=== PATIENT | male | born 1975 | race Caucasian/White ===

== ENCOUNTER 2019-11-08 03:21 | Emergency (ER) | payer OTHER ==
[2019-11-08 03:30] VITALS: BP 118/86; RESP 20; TEMP 97.4
[2019-11-08] MEDS ORDERED: IPRATROPIUM-ALBUTEROL 3 ML NEB INHALATION STA (03:44)
[2019-11-08] MEDS ORDERED: ALBUTEROL NEBULIZED 2.5 MG/3 ML INHALATION STA (03:44)
[2019-11-08] MEDS ORDERED: predniSONE 20 MG TAB PO STA (03:45)
--- NOTE | 2019-11-08 03:57 | ED ---
General Adult HPI - General Chief complaint: Upper Respiratory Infection Stated complaint: Sore Throat Time Seen by Provider: 11/08/19 03:37 Source: patient Mode of arrival: ambulatory Limitations: no limitations - History of Present Illness Initial comments: this patient is a 38-year-old man presents to be evaluated for cough and shortness of breath. The patient states that he has underlying history of COPD. He states that for the past few weeks his breathing has been getting worse. He does not have a doctor he would have been seen earlier. He states he has been noticing wheezing and shortness of breath. He has a cough that occasionally produces some yellowish sputum. There is no chest pain. No change in urination or bowel movements. No leg pain or swelling. -: days(s) Severity scale (1-10): 0 Consistency: constant Improves with: none Worsens with: none Associated Symptoms: cough, shortness of breath Treatments Prior to Arrival: none - Related Data Previous Rx's Medication Instructions Recorded Albuterol Inhaler [Ventolin Hfa 1 - 2 puff INHALATION Q6HR PRN #1 11/08/19 Inhaler] inhaler predniSONE 60 mg PO DAILY #30 tab 11/08/19 Allergies Allergy/AdvReac Type Severity Reaction Status Date / Time No Known Allergies Allergy Verified 11/08/19 03:29 Review of Systems ROS Statement: Those systems with pertinent positive or pertinent negative responses have been documented in the HPI. ROS Other: All systems not noted in ROS Statement are negative. Constitutional: Denies: fever, chills Respiratory: Reports: cough, dyspnea, wheezes. Denies: hemoptysis Cardiovascular: Denies: chest pain, palpitations, edema, syncope Gastrointestinal: Denies: abdominal pain, nausea, vomiting Genitourinary: Denies: dysuria, hematuria Musculoskeletal: Denies: back pain Skin: Denies: rash Neurological: Denies: headache, weakness, numbness Past Medical History Past Medical History: No Reported History History of Any Multi-Drug Resistant Organisms: None Reported Past Surgical History: No Surgical Hx Reported Past Psychological History: Anxiety, Bipolar, Depression, Schizophrenia Smoking Status: Current every day smoker Past Alcohol Use History: Daily Past Drug Use History: Marijuana General Exam Limitations: no limitations General appearance: alert, in no apparent distress Head exam: Present: atraumatic, normocephalic Eye exam: Present: normal appearance. Absent: scleral icterus, conjunctival injection Respiratory exam: Present: wheezes, decreased breath sounds. Absent: respiratory distress, rales, rhonchi, stridor, chest wall tenderness, accessory muscle use, prolonged expiratory Cardiovascular Exam: Present: regular rate, normal rhythm, normal heart sounds. Absent: systolic murmur, diastolic murmur, rubs, gallop GI/Abdominal exam: Present: soft. Absent: distended, tenderness, guarding, rebound Extremities exam: Present: normal inspection, normal capillary refill. Absent: pedal edema, calf tenderness Back exam: Present: normal inspection. Absent: CVA tenderness (R), CVA tenderness (L) Neurological exam: Present: alert Skin exam: Present: warm, dry, intact, normal color. Absent: rash Course Vital Signs 11/08/19 11/08/19 11/08/19 03:24 03:59 04:16 Temperature 97.4 F L Pulse Rate 94 76 76 Respiratory 20 Rate Blood Pressure 118/86 O2 Sat by Pulse 96 Oximetry Medical Decision Making - Lab Data Lab Results 11/08/19 Range/Units 03:50 Influenza Type A RNA Not Detected (Not Detectd) Influenza Type B (PCR) Not Detected (Not Detectd) Disposition Clinical Impression: COPD exacerbation Disposition: HOME SELF-CARE Condition: Good Instructions (If sedation given, give patient instructions): COPD (Chronic Obstructive Pulmonary Disease) (DC) Prescriptions: predniSONE 60 mg PO DAILY #30 tab Albuterol Inhaler [Ventolin Hfa Inhaler] 1 - 2 puff INHALATION Q6HR PRN #1 inhaler PRN Reason: Wheezing Is patient prescribed a controlled substance at d/c from ED?: No Referrals: Gio Mike MD [Primary Care Provider] - 1-2 days
[2019-11-08 04:03] VITALS: PULSE 76
--- NOTE | 2019-11-08 04:04 | XR ---
EXAMINATION TYPE: XR chest 2V DATE OF EXAM: 11/08/2019 COMPARISON: 06/16/2010 HISTORY: Cough TECHNIQUE: 2 views FINDINGS: Heart and mediastinum are normal. Lungs are clear. Diaphragm is normal. Bony thorax appears normal. There are small calcified granuloma right lower lobe. IMPRESSION: Normal heart. No active cardiopulmonary disease. No change.
== END 2019-11-08 05:42 | disposition home or self-care (01) ==
LOC: EC 03:21
DX: J44.1 Chronic obstructive pulmonary disease with (acute) exacerbation (principal); F17.200 Nicotine dependence, unspecified, uncomplicated
CPT/HCPCS: 94640; 87502; 71046; 99285; J7512

== ENCOUNTER 2019-11-22 03:48 | Observation (INO) | payer OTHER ==
[2019-11-22] MEDS ORDERED: IPRATROPIUM-ALBUTEROL 3 ML NEB INHALATION STA (04:24)
[2019-11-22] MEDS ORDERED: methylPREDNISolone SOD SUCCI 125 MG/2 ML VIAL IV STA (04:24)
--- NOTE | 2019-11-22 04:31 | ED ---
SOB HPI - General Chief Complaint: Shortness of Breath Stated Complaint: Diff Breathing Time Seen by Provider: 11/22/19 04:01 Source: patient Mode of arrival: ambulatory Limitations: no limitations - History of Present Illness Initial Comments: Sheng is a pleasant 44-year-old gentleman who presents ER today reporting that he feels like he can't catch his breath. Patient states he does smoke cigarettes every day he has had to come to the hospital in the past for breathing treatments but he doesn't use breathing treatments or inhalers regularly he's not certain if he has COPD. Patient denies any associated chest pain palpitations lightheadedness diaphoresis fevers chills nausea vomiting or body aches. - Related Data Previous Rx's Medication Instructions Recorded Albuterol Inhaler [Ventolin Hfa 1 - 2 puff INHALATION Q6HR PRN #1 11/08/19 Inhaler] inhaler predniSONE 60 mg PO DAILY #30 tab 11/08/19 Albuterol Inhaler [Ventolin Hfa 1 - 2 puff INHALATION RT-Q6H PRN 11/22/19 Inhaler] #1 inhaler predniSONE [Deltasone] 40 mg PO DAILY 5 Days #10 tablet 11/22/19 Allergies Allergy/AdvReac Type Severity Reaction Status Date / Time No Known Allergies Allergy Verified 11/22/19 03:55 Review of Systems ROS Statement: Those systems with pertinent positive or pertinent negative responses have been documented in the HPI. ROS Other: All systems not noted in ROS Statement are negative. Past Medical History Past Medical History: No Reported History History of Any Multi-Drug Resistant Organisms: None Reported Past Surgical History: No Surgical Hx Reported Past Psychological History: Anxiety, Bipolar, Depression, Schizophrenia Smoking Status: Current every day smoker Past Alcohol Use History: Daily Past Drug Use History: Cocaine, Marijuana, Methamphetamine General Exam - General Exam Comments Initial Comments: Physical Exam GENERAL: Patient is well-developed and well-nourished. Patient is nontoxic and well- hydrated and is in no distress. HENT: Normocephalic, Atraumatic. EYES: PERRL, EOMI PULMONARY: Expiratory wheezing in all lung mejía CARDIOVASCULAR: There is a regular rate and rhythm without any murmurs gallops or rubs. ABDOMEN: Soft and nontender with normal bowel sounds. SKIN: Skin is clear with no lesions or rashes and otherwise unremarkable. : Deferred NEUROLOGIC: Patient is alert and oriented x3. Moving all extremities spontaneously MUSCULOSKELETAL: Normal extremities with adequate strength and full range of motion. No lower extremity swelling or edema. No calf tenderness. PSYCHIATRIC: Normal psychiatric evaluation. Limitations: no limitations Course Vital Signs 11/22/19 11/22/19 11/22/19 03:51 05:07 05:14 Temperature 97.6 F Pulse Rate 98 86 88 Respiratory 20 Rate Blood Pressure 109/75 O2 Sat by Pulse 93 L Oximetry 11/22/19 05:56 Temperature Pulse Rate 71 Respiratory 18 Rate Blood Pressure 128/87 O2 Sat by Pulse 95 Oximetry Medical Decision Making - Medical Decision Making Patient was seen and evaluated upon arrival in the emergency department is 44-year-old male who seems to have some cognitive delay, he is a very poor historian. He does admit to smoking cigarettes daily he states that he's used inhalers in the past but doesn't think he has COPD or emphysema doesn't have a nebulizer at home. On initial evaluation patient has wheezing in all lung mejía and is hypoxic to the low 90s. DuoNeb's and steroids were ordered. Upon reevaluation patient had persistent wheezing and an oxygen saturation of only 90% while at rest and on 2 L of oxygen. Decision was made to admit the patient for continuous breathing treatments and steroids. Patient care was discussed with his primary care physician Dr. Jordan who agreed with plan for admission. - Lab Data Result diagrams: 11/22/19 04:31 11/22/19 04:31 Lab Results 11/22/19 11/22/19 Range/Units 04:31 04:31 WBC 7.4 (3.8-10.6) k/uL RBC 4.83 (4.30-5.90) m/uL Hgb 14.8 (13.0-17.5) gm/dL Hct 44.8 (39.0-53.0) % MCV 92.8 (80.0-100.0) fL MCH 30.6 (25.0-35.0) pg MCHC 33.0 (31.0-37.0) g/dL RDW 15.2 (11.5-15.5) % Plt Count 341 (150-450) k/uL Neutrophils % 47 % Lymphocytes % 40 % Monocytes % 6 % Eosinophils % 4 % Basophils % 1 % Neutrophils # 3.5 (1.3-7.7) k/uL Lymphocytes # 2.9 (1.0-4.8) k/uL Monocytes # 0.4 (0-1.0) k/uL Eosinophils # 0.3 (0-0.7) k/uL Basophils # 0.0 (0-0.2) k/uL Sodium 145 (137-145) mmol/L Potassium 4.1 (3.5-5.1) mmol/L Chloride 109 H (98-107) mmol/L Carbon Dioxide 26 (22-30) mmol/L Anion Gap 10 mmol/L BUN 8 L (9-20) mg/dL Creatinine 0.67 (0.66-1.25) mg/dL Est GFR (CKD-EPI)AfAm >90 (>60 ml/min/1.73 sqM) Est GFR (CKD-EPI)NonAf >90 (>60 ml/min/1.73 sqM) Glucose 119 H (74-99) mg/dL Calcium 8.3 L (8.4-10.2) mg/dL Total Bilirubin 0.4 (0.2-1.3) mg/dL AST 46 (17-59) U/L ALT 50 H (4-49) U/L Alkaline Phosphatase 74 (38-126) U/L Total Protein 6.5 (6.3-8.2) g/dL Albumin 3.8 (3.5-5.0) g/dL Disposition Clinical Impression: COPD exacerbation, Tobacco abuse Disposition: ADMITTED IP TO THIS HOSP Condition: Serious
[2019-11-22 04:47] LABS: Basophils % (A) 1 %; Eosinophils # (A) 0.3 k/uL (0-0.7); Eosinophils % (A) 4 %; HCT 44.8 % (39.0-53.0); HGB 14.8 gm/dL (13.0-17.5); Lymphocytes # (A) 2.9 k/uL (1.0-4.8); Lymphocytes % (A) 40 %; MCH 30.6 pg (25.0-35.0); MCV 92.8 fL (80.0-100.0); Mean Platelet Volume 7.2; Monocytes # (A) 0.4 k/uL (0-1.0); Monocytes % (A) 6 %; Neutrophils # (A) 3.5 k/uL (1.3-7.7); Neutrophils % (A) 47 %; Platelet Count 341 k/uL (150-450); RBC 4.83 m/uL (4.30-5.90); RDW 15.2 % (11.5-15.5); WBC 7.4 k/uL (3.8-10.6)
[2019-11-22 04:58] LABS: ALT 50 U/L (4-49); AST 46 U/L (17-59); African American GFR (CKD) >90 (>60 ml/min/1.73 sqM); Albumin 3.8 g/dL (3.5-5.0); Alkaline Phosphatase 74 U/L (38-126); Anion Gap 10 mmol/L; Blood Urea Nitrogen 8 mg/dL (9-20); Calcium 8.3 mg/dL (8.4-10.2); Carbon Dioxide 26 mmol/L (22-30); Chloride 109 mmol/L (98-107); Glucose 119 mg/dL (74-99); Non-African American GFR(CKD) >90 (>60 ml/min/1.73 sqM); Potassium 4.1 mmol/L (3.5-5.1); Sodium 145 mmol/L (137-145); Total Bilirubin 0.4 mg/dL (0.2-1.3); Total Protein 6.5 g/dL (6.3-8.2)
--- NOTE | 2019-11-22 05:12 | XR ---
EXAMINATION TYPE: XR chest 2V DATE OF EXAM: 11/22/2019 COMPARISON: 11/08/2019 HISTORY: Cough TECHNIQUE: 2 views FINDINGS: Heart and mediastinum are normal. Lungs are clear. Diaphragm is normal. There is small calc ified granuloma right lower lobe. There are chest leads. IMPRESSION: No cardiopulmonary disease. No change.
[2019-11-22] MEDS ORDERED: NICOTINE POLACRILEX 2 MG GUM BUCCAL PRN (05:37)
[2019-11-22] MEDS: IPRATROPIUM-ALBUTEROL 3 ML NEB INHALATION PRN ×4 (08:02→20:49)
[2019-11-22] MEDS ORDERED: INFLUENZA VACCINE (6 MOS+) 60 MCG/0.5 ML SYRINGE IM ONE (10:12)
[2019-11-22] MEDS: predniSONE 20 MG TAB PO SCH (10:39)
[2019-11-22] MEDS: NICOTINE 14MG/24HR PATCH TRANSDERM SCH (10:39)
[2019-11-22] MEDS: IBUPROFEN 800 MG TAB PO PRN ×2 (12:11→17:19)
[2019-11-22] MEDS: guaiFENesin-Coden 100-10MG/5ML 10 ML CUP PO PRN (17:19)
--- NOTE | 2019-11-22 21:11 | HP ---
HISTORY AND PHYSICAL CHIEF COMPLAINT: Difficulty breathing. HISTORY OF PRESENT ILLNESS: This is another admission for this 44-year-old white male. He has not been seen in the office since 2011. He does not take any medications. He does smoke. He came to the emergency room where he was very dyspneic, wheezy and was admitted as exacerbation of COPD. REVIEW OF SYSTEMS: He has had no headaches, neurologic, problems, difficulty with vision or hearing, hemoptysis, chest pain, heart disease, hypertension, orthopnea, PND, abdominal pain, nausea, vomiting, hematemesis, melena, hematochezia, jaundice, hepatitis, cirrhosis, hematuria, frequency, urgency, nocturia, renal failure, diabetes, etc. Past medical history, family history and personal and social histories were otherwise unremarkable other than his smoking history. He apparently drinks moderately. PHYSICAL EXAMINATION: Blood pressure 120/86 with a pulse of 90, respirations of 38 and he is afebrile. In general, he appeared to be somewhat disheveled, in no acute distress. Skin color is normal. Skin is warm, dry. Lymph nodes are not enlarged. Head, ears, eyes, nose, mouth, and throat were normal and neck veins not distended. Chest demonstrated poor breath sounds throughout with an increased AP diameter and expiratory wheezing and scattered rales and rhonchi. Cardiac exam is normal. Abdomen is soft, nontender. Extremities: Normal. Neurologically he is intact. IMPRESSION: Exacerbation of chronic obstructive pulmonary disease. PLAN: 1. Bed rest. 2. IV fluids. 3. IV and inhaled steroids. 4. Updrafts. MMODL / IJN: [id number] /
[2019-11-23] MEDS: NICOTINE 14MG/24HR PATCH TRANSDERM SCH (08:50)
[2019-11-23] MEDS: predniSONE 20 MG TAB PO SCH (08:50)
[2019-11-23] MEDS: guaiFENesin-Coden 100-10MG/5ML 10 ML CUP PO PRN ×2 (09:30→19:40)
[2019-11-23] MEDS ORDERED: NICOTINE 14MG/24HR PATCH TRANSDERM STA (09:46)
[2019-11-23] MEDS: IPRATROPIUM-ALBUTEROL 3 ML NEB INHALATION PRN ×3 (11:59→19:52)
--- NOTE | 2019-11-23 13:47 | PN ---
PROGRESS NOTE CHIEF COMPLAINT: Status asthmaticus and COPD. HISTORY OF PRESENT ILLNESS: This gentleman is slightly improved. He is still very wheezy, congested and short of breath with regular activity in the room. PHYSICAL EXAMINATION: He still has rales, rhonchi and wheezing heard throughout the chest with slightly prolonged expiratory phase. Cardiac exam demonstrates tachycardia and the abdomen is soft, nontender. IMPRESSION: Exacerbation of chronic obstructive pulmonary disease. PLAN: Continue with current program for another day or two until he can be discharged. MMODL / IJN: [id number] /
[2019-11-23] MEDS: IBUPROFEN 800 MG TAB PO PRN (19:40)
[2019-11-24] MEDS: predniSONE 20 MG TAB PO SCH (08:25)
[2019-11-24] MEDS: NICOTINE 14MG/24HR PATCH TRANSDERM SCH (08:25)
[2019-11-24] MEDS: guaiFENesin-Coden 100-10MG/5ML 10 ML CUP PO PRN ×2 (08:25→21:31)
[2019-11-24] MEDS: IBUPROFEN 800 MG TAB PO PRN ×2 (08:25→21:31)
[2019-11-24] MEDS: IPRATROPIUM-ALBUTEROL 3 ML NEB INHALATION PRN ×4 (09:18→21:16)
--- NOTE | 2019-11-24 22:57 | PN ---
PROGRESS NOTE CHIEF COMPLAINT: Exacerbation of COPD. HISTORY OF PRESENT ILLNESS: This gentleman is doing a little bit better. Each day is a little more open. PHYSICAL EXAMINATION: He still has bilateral wheezing and decreased breath sounds. Cardiac exam is normal. Abdomen is soft, nontender. IMPRESSION: Exacerbation of chronic obstructive pulmonary disease. PLAN: Continue with current treatment and he will probably be able to go home tomorrow. MMODL / IJN: [id number] /
[2019-11-25 06:16] VITALS: BP 112/77; RESP 17; TEMP 97.6
[2019-11-25] MEDS: NICOTINE 14MG/24HR PATCH TRANSDERM SCH (07:49)
[2019-11-25] MEDS: IBUPROFEN 800 MG TAB PO PRN (07:49)
[2019-11-25] MEDS: predniSONE 20 MG TAB PO SCH (07:50)
[2019-11-25] MEDS: guaiFENesin-Coden 100-10MG/5ML 10 ML CUP PO PRN (07:50)
[2019-11-25] MEDS: IPRATROPIUM-ALBUTEROL 3 ML NEB INHALATION PRN ×2 (08:20→11:48)
[2019-11-25 08:31] VITALS: PULSE 92
--- NOTE | 2019-11-26 08:05 | DS ---
DISCHARGE SUMMARY CHIEF COMPLAINT: Difficulty breathing. HISTORY OF PRESENT ILLNESS AND PHYSICAL EXAMINATION: Details of this man's history and physical can be found in the initial workup. LABORATORY STUDIES: While he was in the hospital he had laboratory studies, details of which can be found in the laboratory section of his chart. COURSE IN THE HOSPITAL: After admission, he was placed on bedrest, started on intravenous fluids, IV and inhaled steroids and updrafts. He responded well over the next several days. He was doing well enough it was felt that he could go home on the and he will go home on his usual activity, diet and was admonished to stop smoking. He will go home with a Medrol Dosepak and we will set him up for updraft device at home. He will be seen in the office in a day or so. FINAL DIAGNOSIS: Exacerbation of chronic obstructive pulmonary disease. OPERATIONS: None. CONSULTATION: None. He is improved. MMVEDAL / IJN: [id number] /
[2019-11-26] MEDS ORDERED: methylPREDNISolone 4 MG TAB TAPER PO SCH (09:00)
== END 2019-11-25 13:30 | disposition home or self-care (01) ==
LOC: EC 03:48 → 6NMEDSUR 06:27
PROVIDERS: ADMIT Family Medicine; ATTEND Family Medicine
DX: J44.1 Chronic obstructive pulmonary disease with (acute) exacerbation (principal); F17.210 Nicotine dependence, cigarettes, uncomplicated; J84.10 Pulmonary fibrosis, unspecified; F41.9 Anxiety disorder, unspecified; F31.9 Bipolar disorder, unspecified; F20.9 Schizophrenia, unspecified; Z23 Encounter for immunization; Z79.899 Other long term (current) drug therapy
CPT/HCPCS: 90471; 36415; 94640 ×8; 94760; 93005; 80053; 85025; 71046; 90686; G0378 ×4; G0008; S4990 ×4; J2930; J7512 ×4

== ENCOUNTER 2019-11-26 17:26 | Emergency (ER) | payer OTHER ==
--- NOTE | 2019-11-26 17:58 | ED ---
Head Injury HPI - General Chief complaint: Head Injury Stated complaint: Fall Time Seen by Provider: 11/26/19 17:46 Source: patient, RN notes reviewed, old records reviewed Mode of arrival: ambulatory Limitations: no limitations - History of Present Illness Initial comments: This is a 44-year-old male here for status post slip and fall. Patient does ad loli alcohol intoxication. Patient did hit his head no loss consciousness. He was witnessed by bystanders who called EMS and brought valuation no obvious injury. No bleeding. Patient denying any significant pain he does complain of mild headache but no other pain on his body. No neck pain MD Complaint: head injury, fall -: hour(s) Mechanism of Injury: mechanical fall Loss of Consciousness: no Previous Trauma to this Area: No Place: home Radiation: none Severity: mild Consistency: constant Provoking factors: none known Other Injuries: none Associated Symptoms: denies other symptoms - Related Data Previous Rx's Medication Instructions Recorded Albuterol Inhaler [Ventolin Hfa 1 - 2 puff INHALATION RT-Q6H PRN 11/22/19 Inhaler] #1 inhaler predniSONE [Deltasone] 40 mg PO DAILY 5 Days #10 tablet 11/22/19 Ipratropium-Albuterol Nebulize 3 ml INHALATION RT-Q4H PRN #120 11/25/19 [Duoneb 0.5 mg-3 mg/3 ml Soln] ampul.neb methylPREDNISolone Dose Pack 24 mg PO DAILY 7 Days #1 dosepack 11/25/19 [Medrol Dose Pack] Allergies/Adverse reactions: Allergies Allergy/AdvReac Type Severity Reaction Status Date / Time No Known Allergies Allergy Verified 11/26/19 17:32 Review of Systems ROS Statement: Those systems with pertinent positive or pertinent negative responses have been documented in the HPI. ROS Other: All systems not noted in ROS Statement are negative. Past Medical History Past Medical History: Asthma, COPD, GERD/Reflux, Osteoarthritis (OA) Additional Past Medical History / Comment(s): Bronchitis, gastric ulcer, lower GI bleed, concussion years ago, chronic low back pain, arthritis bilateral hands/shoulders History of Any Multi-Drug Resistant Organisms: None Reported Past Surgical History: No Surgical Hx Reported Past Anesthesia/Blood Transfusion Reactions: Unable to Obtain Additional Past Anesthesia/Blood Transfusion Reaction / Comment(s): Pt has never had anesthesia. Past Psychological History: Anxiety, Bipolar, Depression, Schizophrenia Smoking Status: Current every day smoker Past Alcohol Use History: Daily Past Drug Use History: Marijuana - Past Family History Father Family Medical History: Myocardial Infarction ([place]) Additional Family Medical History / Comment(s): Father of a massive [place] at the age of 61 yrs. Mother Family Medical History: Diabetes Mellitus, Hypertension Additional Family Medical History / Comment(s): Mother is 76yrs old. General Exam Limitations: no limitations General appearance: alert, in no apparent distress Head exam: Present: atraumatic, normocephalic, normal inspection Eye exam: Present: normal appearance, PERRL, EOMI. Absent: scleral icterus, c onjunctival injection, periorbital swelling ENT exam: Present: normal exam, mucous membranes moist Neck exam: Present: normal inspection. Absent: tenderness, meningismus, lymphadenopathy Respiratory exam: Present: normal lung sounds bilaterally. Absent: respiratory distress, wheezes, rales, rhonchi, stridor Cardiovascular Exam: Present: regular rate, normal rhythm, normal heart sounds. Absent: systolic murmur, diastolic murmur, rubs, gallop, clicks GI/Abdominal exam: Present: soft, normal bowel sounds. Absent: distended, tenderness, guarding, rebound, rigid Extremities exam: Present: normal inspection, full ROM, normal capillary refill. Absent: tenderness, pedal edema, joint swelling, calf tenderness Back exam: Present: normal inspection Neurological exam: Present: alert, oriented X3, CN II-XII intact Psychiatric exam: Present: normal affect, normal mood Skin exam: Present: warm, dry, intact, normal color. Absent: rash Course Vital Signs 11/26/19 17:28 Temperature 98.8 F Pulse Rate 104 H Respiratory 20 Rate Blood Pressure 117/76 O2 Sat by Pulse 93 L Oximetry - Reevaluation(s) Reevaluation #1: 11/26/19 19:26 Medical records reviewed Reevaluation #2: 11/26/19 19:26 Patient does have evaluation here in the ER remains significantly neurologically intact able ambulate Reevaluation #3: 11/26/19 19:26 Reasons mentating appropriately. Knows where he is. Control of making informed decisions like discharge home attempts were made to give patient safe ride Medical Decision Making - Medical Decision Making 44 male status post fall without injury. CT brain C-spine negative patient can be discharged home Disposition Clinical Impression: Closed head injury, Fall Disposition: HOME SELF-CARE Condition: Good Instructions (If sedation given, give patient instructions): Concussion (ED), Fall Prevention for Older Adults (ED) Is patient prescribed a controlled substance at d/c from ED?: No Referrals: Oseas Jordan MD [Primary Care Provider] - 1-2 days
--- NOTE | 2019-11-26 18:47 | CT ---
EXAMINATION TYPE: CT brain jennifer wo con DATE OF EXAM: 11/26/2019 COMPARISON: 12/24/2013 HISTORY: Fall with posterior head injury. CT DLP: 1522.7 mGycm, Automated exposure control for dose reduction was used. CONTRAST: Patient injected with 0 mL of Isovue 300. CT of the brain is performed utilizing 3 mm thick sections through the posterior fossa and 3 mm thick sections through the remaining calvarium. Study is performed within 24 hours of arrival to the hospital. No abnormal hyperdensity is present to suggest an acute intracranial hemorrhage. No mass lesion is evident. No acute infarcts are evident. Ventricles and sulci are appropriate for the patient age. Paranasal sinuses and mastoid air cells within the [id number] are clear. IMPRESSIONS: 1. Normal CT brain. CT cervical spine. COMPARISON: None CT of the cervical spine is performed in the axial plane at 2 mm thick sections. Reconstructed image s in the coronal, and sagittal plane are reviewed on the computer. No acute fractures are evident. Vertebral body alignment is normal. Disc heights are preserved. Vertebral body heights are preserved. No spinal canal stenosis is evident. No neural foraminal stenosis is evident. IMPRESSIONS: 1. No acute osseous abnormality cervical spine
[2019-11-26] MEDS ORDERED: ACETAMINOPHEN TAB 325 MG TAB PO STA (19:18)
[2019-11-26] MEDS ORDERED: IBUPROFEN 600 MG TAB PO STA (19:18)
[2019-11-27] MEDS ORDERED: LORazepam 1 MG TAB PO STA (00:17)
[2019-11-27 01:17] VITALS: PULSE 87
[2019-11-27 05:15] VITALS: BP 144/74; RESP 18; TEMP 98
== END 2019-11-27 05:14 | disposition home or self-care (01) ==
LOC: EC 17:26
DX: S09.90XA Unspecified injury of head, initial encounter (principal); F17.200 Nicotine dependence, unspecified, uncomplicated; W01.0XXA Fall on same level from slipping, tripping and stumbling without subsequent striking against object, initial encounter
CPT/HCPCS: 70450; 72125; 99284

== ENCOUNTER 2019-11-29 21:42 | Emergency (ER) | payer OTHER ==
--- NOTE | 2019-11-29 22:26 | ED ---
Psych HPI - General Chief Complaint: Psychiatric Symptoms Stated Complaint: EPS Source: patient Mode of arrival: ambulatory - History of Present Illness Initial Comments: Patient's 44-year-old man who presents to be valid for depression and feeling like he would be better off . The patient denies having suicidal plan. States he does not have psychiatrist and is not currently taking any psychiatric medicines. MD Complaint: suicidal ideation, feels depressed Onset/Timin -: week(s) Associated Psychiatric Symptoms: depression History of same: Yes Quality: getting worse Improves With: none Worsens With: none - Related Data Previous Rx's Medication Instructions Recorded predniSONE [Deltasone] 40 mg PO DAILY 5 Days #10 tablet 11/22/19 Ipratropium-Albuterol Nebulize 3 ml INHALATION RT-Q4H PRN #120 11/25/19 [Duoneb 0.5 mg-3 mg/3 ml Soln] ampul.neb Allergies Allergy/AdvReac Type Severity Reaction Status Date / Time No Known Allergies Allergy Verified 11/29/19 22:24 Review of Systems ROS Statement: Those systems with pertinent positive or pertinent negative responses have been documented in the HPI. ROS Other: All systems not noted in ROS Statement are negative. Constitutional: Denies: fever, chills Respiratory: Denies: cough, dyspnea Cardiovascular: Denies: chest pain, palpitations, syncope Gastrointestinal: Denies: abdominal pain, vomiting, diarrhea Genitourinary: Denies: dysuria, hematuria Musculoskeletal: Denies: back pain Skin: Denies: rash Neurological: Denies: headache Psychiatric: Reports: depression, suicidal thoughts. Denies: anxiety, auditory hallucinations, visual hallucinations, homicidal thoughts Past Medical History Past Medical History: Asthma, COPD, GERD/Reflux, Osteoarthritis (OA) Additional Past Medical History / Comment(s): Bronchitis, gastric ulcer, lower GI bleed, concussion years ago, chronic low back pain, arthritis bilateral hands/shoulders History of Any Multi-Drug Resistant Organisms: None Reported Past Surgical History: No Surgical Hx Reported Past Anesthesia/Blood Transfusion Reactions: Unable to Obtain Additional Past Anesthesia/Blood Transfusion Reaction / Comment(s): Pt has never had anesthesia. Past Psychological History: Anxiety, Bipolar, Depression, Schizophrenia Smoking Status: Current every day smoker Past Alcohol Use History: Daily Past Drug Use History: Marijuana - Past Family History Father Family Medical History: Myocardial Infarction (PR) Additional Family Medical History / Comment(s): Father of a massive PR at the age of 61 yrs. Mother Family Medical History: Diabetes Mellitus, Hypertension Additional Family Medical History / Comment(s): Mother is 76yrs old. General Exam Limitations: no limitations General appearance: alert, in no apparent distress Head exam: Present: atraumatic, normocephalic ENT exam: Present: normal oropharynx Respiratory exam: Present: wheezes (Trace expiratory wheeze). Absent: respiratory distress, rales, rhonchi, stridor, accessory muscle use, decreased breath sounds Cardiovascular Exam: Present: regular rate, normal rhythm, normal heart sounds. Absent: systolic murmur, diastolic murmur, rubs, gallop GI/Abdominal exam: Present: soft. Absent: tenderness, guarding Extremities exam: Present: normal inspection, normal capillary refill. Absent: pedal edema, calf tenderness Back exam: Present: normal inspection Neurological exam: Present: alert Psychiatric exam: Present: depressed. Absent: agitated, anxious, flat affect, manic, homicidal ideation, suicidal ideation Skin exam: Present: warm, dry, intact, normal color. Absent: rash Course Vital Signs 11/29/19 11/30/19 21:48 01:39 Temperature 99.0 F Pulse Rate 102 H 100 Respiratory 20 19 Rate Blood Pressure 146/91 127/81 O2 Sat by Pulse 94 L 95 Oximetry Medical Decision Making - Lab Data Result diagrams: 11/30/19 01:47 11/30/19 01:47 Lab Results 11/30/19 11/30/19 11/30/19 Range/Units 00:21 00:21 01:47 WBC 7.7 (3.8-10.6) k/uL RBC 4.78 (4.30-5.90) m/uL Hgb 14.7 (13.0-17.5) gm/dL Hct 45.0 (39.0-53.0) % MCV 94.2 (80.0-100.0) fL MCH 30.8 (25.0-35.0) pg MCHC 32.7 (31.0-37.0) g/dL RDW 14.6 (11.5-15.5) % Plt Count 202 (150-450) k/uL Neutrophils % 59 % Lymphocytes % 29 % Monocytes % 5 % Eosinophils % 4 % Basophils % 1 % Neutrophils # 4.6 (1.3-7.7) k/uL Lymphocytes # 2.2 (1.0-4.8) k/uL Monocytes # 0.4 (0-1.0) k/uL Eosinophils # 0.3 (0-0.7) k/uL Basophils # 0.1 (0-0.2) k/uL Sodium (137-145) mmol/L Potassium (3.5-5.1) mmol/L Chloride (98-107) mmol/L Carbon Dioxide (22-30) mmol/L Anion Gap mmol/L BUN (9-20) mg/dL Creatinine (0.66-1.25) mg/dL Est GFR (CKD-EPI)AfAm (>60 ml/min/1.73 sqM) Est GFR (CKD-EPI)NonAf (>60 ml/min/1.73 sqM) Glucose (74-99) mg/dL Calcium (8.4-10.2) mg/dL Total Bilirubin (0.2-1.3) mg/dL AST (17-59) U/L ALT (4-49) U/L Alkaline Phosphatase (38-126) U/L Total Protein (6.3-8.2) g/dL Albumin (3.5-5.0) g/dL Urine Color Yellow Urine Appearance Clear (Clear) Urine pH 5.5 (5.0-8.0) Ur Specific [place] 1.028 (1.001-1.035) Urine Protein 1+ H (Negative) Urine Glucose (UA) Negative (Negative) Urine Ketones Trace H (Negative) Urine Blood Negative (Negative) Urine Nitrite Negative (Negative) Urine Bilirubin Negative (Negative) Urine Urobilinogen 2.0 (<2.0) mg/dL Ur Leukocyte Esterase Negative (Negative) Urine WBC 1 (0-5) /hpf Ur Squamous Epith Cells 1 (0-4) /hpf Hyaline Casts 1 (0-2) /lpf Urine Mucus Rare H (None) /hpf Urine Opiates Screen Not Detected (NotDetected) Ur Oxycodone Screen Not Detected (NotDetected) Urine Methadone Screen Not Detected (NotDetected) Ur Propoxyphene Screen Not Detected (NotDetected) Ur Barbiturates Screen Not Detected (NotDetected) U Tricyclic Antidepress Not Detected (NotDetected) Ur Phencyclidine Scrn Not Detected (NotDetected) Ur Amphetamines Screen Not Detected (NotDetected) U Methamphetamines Scrn Not Detected (NotDetected) U Benzodiazepines Scrn Detected H (NotDetected) Urine Cocaine Screen Not Detected (NotDetected) U Marijuana (THC) Screen Detected H (NotDetected) 11/30/19 Range/Units 01:47 WBC (3.8-10.6) k/uL RBC (4.30-5.90) m/uL Hgb (13.0-17.5) gm/dL Hct (39.0-53.0) % MCV (80.0-100.0) fL MCH (25.0-35.0) pg MCHC (31.0-37.0) g/dL RDW (11.5-15.5) % Plt Count (150-450) k/uL Neutrophils % % Lymphocytes % % Monocytes % % Eosinophils % % Basophils % % Neutrophils # (1.3-7.7) k/uL Lymphocytes # (1.0-4.8) k/uL Monocytes # (0-1.0) k/uL Eosinophils # (0-0.7) k/uL Basophils # (0-0.2) k/uL Sodium 137 (137-145) mmol/L Potassium 3.9 (3.5-5.1) mmol/L Chloride 102 (98-107) mmol/L Carbon Dioxide 29 (22-30) mmol/L Anion Gap 6 mmol/L BUN 12 (9-20) mg/dL Creatinine 0.71 (0.66-1.25) mg/dL Est GFR (CKD-EPI)AfAm >90 (>60 ml/min/1.73 sqM) Est GFR (CKD-EPI)NonAf >90 (>60 ml/min/1.73 sqM) Glucose 112 H (74-99) mg/dL Calcium 9.1 (8.4-10.2) mg/dL Total Bilirubin 0.7 (0.2-1.3) mg/dL AST 32 (17-59) U/L ALT 33 (4-49) U/L Alkaline Phosphatase 86 (38-126) U/L Total Protein 6.5 (6.3-8.2) g/dL Albumin 4.0 (3.5-5.0) g/dL Urine Color Urine Appearance (Clear) Urine pH (5.0-8.0) Ur Specific [place] (1.001-1.035) Urine Protein (Negative) Urine Glucose (UA) (Negative) Urine Ketones (Negative) Urine Blood (Negative) Urine Nitrite (Negative) Urine Bilirubin (Negative) Urine Urobilinogen (<2.0) mg/dL Ur Leukocyte Esterase (Negative) Urine WBC (0-5) /hpf Ur Squamous Epith Cells (0-4) /hpf Hyaline Casts (0-2) /lpf Urine Mucus (None) /hpf Urine Opiates Screen (NotDetected) Ur Oxycodone Screen (NotDetected) Urine Methadone Screen (NotDetected) Ur Propoxyphene Screen (NotDetected) Ur Barbiturates Screen (NotDetected) U Tricyclic Antidepress (NotDetected) Ur Phencyclidine Scrn (NotDetected) Ur Amphetamines Screen (NotDetected) U Methamphetamines Scrn (NotDetected) U Benzodiazepines Scrn (NotDetected) Urine Cocaine Screen (NotDetected) U Marijuana (THC) Screen (NotDetected) Disposition Clinical Impression: Mood disorder Disposition: OTHER INSTITUTION NOT DEFINED Condition: Fair Is patient prescribed a controlled substance at d/c from ED?: No Referrals: Oseas Jordan MD [Primary Care Provider] - 1-2 days
[2019-11-30 01:03] LABS: Amphetamine Screen,Urine Not Detected (NotDetected); Barbiturate Screen,Urine Not Detected (NotDetected); Benzodiazepines Screen,Urine Detected (NotDetected); Cocaine Screen,Urine Not Detected (NotDetected); Methadone Screen, Urine Not Detected (NotDetected); Opiate Screen,Urine Not Detected (NotDetected); Oxycodone Screen, Urine Not Detected (NotDetected); Phencyclidine Screen,Urine Not Detected (NotDetected); Tricyclic Antidepressant,Urine Not Detected (NotDetected); Urn Cannabinoid Scrn Detected (NotDetected)
[2019-11-30 01:46] LABS: Appearance,Urine Clear (Clear); Bilirubin,Urine Negative (Negative); Blood,Urine Negative (Negative); Color,Urine Yellow; Glucose,Urine (UA) Negative (Negative); Hyaline Casts,Urine 1 /lpf (0-2); Ketones,Urine Trace (Negative); Leukocyte Esterase,Urine Negative (Negative); Mucus,Urine Rare /hpf; Nitrite,Urine Negative (Negative); PH, Urine 5.5 (5.0-8.0); Protein,Urine 1+ (Negative); Specific Gravity,Urine 1.028 (1.001-1.035); Squamous Epithelial Cell,Urine 1 /hpf (0-4); WBC,Urine 1 /hpf (0-5)
[2019-11-30 02:27] LABS: ALT 33 U/L (4-49); AST 32 U/L (17-59); African American GFR (CKD) >90 (>60 ml/min/1.73 sqM); Alkaline Phosphatase 86 U/L (38-126); Anion Gap 6 mmol/L; Blood Urea Nitrogen 12 mg/dL (9-20); Calcium 9.1 mg/dL (8.4-10.2); Carbon Dioxide 29 mmol/L (22-30); Chloride 102 mmol/L (98-107); Glucose 112 mg/dL (74-99); Non-African American GFR(CKD) >90 (>60 ml/min/1.73 sqM); Potassium 3.9 mmol/L (3.5-5.1); Sodium 137 mmol/L (137-145); Total Bilirubin 0.7 mg/dL (0.2-1.3); Total Protein 6.5 g/dL (6.3-8.2)
[2019-11-30 02:45] LABS: Basophils # (A) 0.1 k/uL (0-0.2); Basophils % (A) 1 %; Eosinophils # (A) 0.3 k/uL (0-0.7); Eosinophils % (A) 4 %; HGB 14.7 gm/dL (13.0-17.5); Lymphocytes # (A) 2.2 k/uL (1.0-4.8); Lymphocytes % (A) 29 %; MCH 30.8 pg (25.0-35.0); MCHC 32.7 g/dL (31.0-37.0); MCV 94.2 fL (80.0-100.0); Monocytes # (A) 0.4 k/uL (0-1.0); Monocytes % (A) 5 %; Neutrophils # (A) 4.6 k/uL (1.3-7.7); Neutrophils % (A) 59 %; Platelet Count 202 k/uL (150-450); RBC 4.78 m/uL (4.30-5.90); RDW 14.6 % (11.5-15.5); WBC 7.7 k/uL (3.8-10.6)
[2019-11-30 04:27] VITALS: TEMP 97.9
[2019-11-30 06:46] VITALS: BP 141/93; PULSE 89; RESP 17
== END 2019-11-30 08:04 | disposition short-term general hospital (02) ==
LOC: EC 21:42
DX: F31.30 Bipolar disorder, current episode depressed, mild or moderate severity, unspecified (principal); R06.2 Wheezing; F17.200 Nicotine dependence, unspecified, uncomplicated
CPT/HCPCS: 36415; 80053; 80306; 81001; 82075; 85025; 99285

== ENCOUNTER 2020-02-18 20:58 | Emergency (ER) | payer OTHER ==
[2020-02-18 21:05] VITALS: TEMP 98.3
[2020-02-18] MEDS ORDERED: AZITHROMYCIN 500 MG in SODIUM CHLORIDE 0.9% 250 ML IVPB STA (21:18)
[2020-02-18] MEDS ORDERED: methylPREDNISolone SOD SUCCI 125 MG/2 ML VIAL IV STA (21:18)
[2020-02-18] MEDS ORDERED: ALBUTEROL NEBULIZED 2.5 MG/3 ML INHALATION STA (21:18)
[2020-02-18] MEDS ORDERED: IPRATROPIUM 0.5 MG/2.5 ML NEBU INHALATION STA (21:18)
[2020-02-18] MEDS ORDERED: SODIUM CHLORIDE 0.9% 1,000 ML IV STA ×3 (21:18→22:53)
--- NOTE | 2020-02-18 21:19 | ED ---
SOB HPI - General Chief Complaint: Shortness of Breath Stated Complaint: VITA, cough Time Seen by Provider: 02/18/20 21:04 Source: patient, EMS, RN notes reviewed, old records reviewed Mode of arrival: EMS Limitations: no limitations - History of Present Illness Initial Comments: This is a 44-year-old male with a known history of COPD also some mental health issues is homeless patient denying any recent drugs or alcohol coming in for shortness of breath. He called EMS he [place] and sent the ER, patient comes in the ER with some shortness breath and wheezing no chest pain. Denying any fevers at home no chills no sweats. No travel history or sick contacts likely does admit to exposure to people with similar cough and sickness. Patient has hospital admission prior to the new year for COPD and 1 hospital admission on the side of the ear for psychiatric evaluation. No recent change in medications. Patient does continue to smoke MD Complaint: shortness of breath, cough -: days(s) Severity: moderate Severity scale (1-10): 4 Quality: dull Consistency: constant Improves With: nothing Worsens With: nothing Known History Of: COPD Context: recent URI Associated Symptoms: chest pain, cough Treatments Prior to Arrival: none - Related Data Previous Rx's Medication Instructions Recorded predniSONE [Deltasone] 40 mg PO DAILY 5 Days #10 tablet 11/22/19 Ipratropium-Albuterol Nebulize 3 ml INHALATION RT-Q4H PRN #120 11/25/19 [Duoneb 0.5 mg-3 mg/3 ml Soln] ampul.neb Albuterol Sulfate [Proair Hfa] 1 - 2 puff INHALATION Q4H PRN #1 02/18/20 inhaler Azithromycin [Zithromax Z-pack] 0 mg PO DIRECTED #1 pack 02/18/20 predniSONE 50 mg PO DAILY #5 tab 02/18/20 Allergies Allergy/AdvReac Type Severity Reaction Status Date / Time No Known Allergies Allergy Verified 11/29/19 22:24 Review of Systems ROS Statement: Those systems with pertinent positive or pertinent negative responses have been documented in the HPI. ROS Other: All systems not noted in ROS Statement are negative. Past Medical History Past Medical History: Asthma, COPD, GERD/Reflux, Osteoarthritis (OA) Additional Past Medical History / Comment(s): Bronchitis, gastric ulcer, lower GI bleed, concussion years ago, chronic low back pain, arthritis bilateral hands/shoulders History of Any Multi-Drug Resistant Organisms: None Reported Past Surgical History: No Surgical Hx Reported Past Anesthesia/Blood Transfusion Reactions: Unable to Obtain Additional Past Anesthesia/Blood Transfusion Reaction / Comment(s): Pt has never had anesthesia. Past Psychological History: Anxiety, Bipolar, Depression, Schizophrenia Smoking Status: Current every day smoker Past Alcohol Use History: Occasional Past Drug Use History: Marijuana - Past Family History Father Family Medical History: Myocardial Infarction (OR) Additional Family Medical History / Comment(s): Father of a massive OR at the age of 61 yrs. Mother Family Medical History: Diabetes Mellitus, Hypertension Additional Family Medical History / Comment(s): Mother is 76yrs old. General Exam Limitations: no limitations General appearance: alert, in no apparent distress Head exam: Present: atraumatic, normocephalic, normal inspection Eye exam: Present: normal appearance, PERRL, EOMI. Absent: scleral icterus, conjunctival injection, periorbital swelling ENT exam: Present: normal exam, mucous membranes dry Neck exam: Present: normal inspection. Absent: tenderness, meningismus, lymphadenopathy Respiratory exam: Present: wheezes, accessory muscle use, decreased breath sounds, prolonged expiratory. Absent: respiratory distress, rales, rhonchi, stridor Cardiovascular Exam: Present: normal rhythm, tachycardia, normal heart sounds. Absent: systolic murmur, diastolic murmur, rubs, gallop, clicks GI/Abdominal exam: Present: soft, normal bowel sounds. Absent: distended, tenderness, guarding, rebound, rigid Extremities exam: Present: normal inspection, full ROM, normal capillary refill. Absent: tenderness, pedal edema, joint swelling, calf tenderness Back exam: Present: normal inspection Neurological exam: Present: alert, oriented X3, CN II-XII intact Psychiatric exam: Present: normal affect, normal mood Skin exam: Present: warm, dry, intact, normal color. Absent: rash Course Vital Signs 02/18/20 02/18/20 02/18/20 20:59 21:30 21:41 Temperature 98.3 F Pulse Rate 109 H 59 L 100 Respiratory 24 Rate Blood Pressure 141/93 O2 Sat by Pulse 95 Oximetry 02/18/20 02/18/20 02/18/20 21:51 22:00 22:05 Temperature Pulse Rate 106 H 99 106 H Respiratory 18 Rate Blood Pressure 141/93 O2 Sat by Pulse 100 Oximetry - Reevaluation(s) Reevaluation #1: 02/18/20 22:56 Medical records reviewed Reevaluation #2: 02/18/20 22:56 Symptoms significantly improved after initial breathing treatment, patient given second breathing treatment Reevaluation #3: 02/18/20 22:56 Patient has no distress no significant shortness of breath Reevaluation #4: 02/18/20 22:56 Spoke with patient regarding findings and results, questions answered Medical Decision Making - Medical Decision Making 44 male the ER with likely simple COPD exacerbation no fever here in the ER lab values are within normal limits patient's pulse ox is 100% on room air. Patient can be discharged home - Lab Data Result diagrams: 02/18/20 21:10 02/18/20 21:10 Lab Results 02/18/20 02/18/20 02/18/20 Range/Units 21:10 21:10 21:10 WBC 11.0 H (3.8-10.6) k/uL RBC 5.29 (4.30-5.90) m/uL Hgb 15.7 (13.0-17.5) gm/dL Hct 49.4 (39.0-53.0) % MCV 93.5 (80.0-100.0) fL MCH 29.7 (25.0-35.0) pg MCHC 31.8 (31.0-37.0) g/dL RDW 13.6 (11.5-15.5) % Plt Count 311 (150-450) k/uL Neutrophils % 81 % Lymphocytes % 10 % Monocytes % 5 % Eosinophils % 2 % Basophils % 0 % Neutrophils # 8.9 H (1.3-7.7) k/uL Lymphocytes # 1.1 (1.0-4.8) k/uL Monocytes # 0.6 (0-1.0) k/uL Eosinophils # 0.2 (0-0.7) k/uL Basophils # 0.0 (0-0.2) k/uL PT 9.4 (9.0-12.0) sec INR 0.9 (<1.2) APTT 24.9 (22.0-30.0) sec Sodium 135 L (137-145) mmol/L Potassium 4.5 (3.5-5.1) mmol/L Chloride 101 (98-107) mmol/L Carbon Dioxide 25 (22-30) mmol/L Anion Gap 9 mmol/L BUN 15 (9-20) mg/dL Creatinine 0.71 (0.66-1.25) mg/dL Est GFR (CKD-EPI)AfAm >90 (>60 ml/min/1.73 sqM) Est GFR (CKD-EPI)NonAf >90 (>60 ml/min/1.73 sqM) Glucose 101 H (74-99) mg/dL Calcium 9.2 (8.4-10.2) mg/dL Magnesium 2.1 (1.6-2.3) mg/dL Total Bilirubin 0.4 (0.2-1.3) mg/dL AST 29 (17-59) U/L ALT 22 (4-49) U/L Alkaline Phosphatase 75 (38-126) U/L Creatine Kinase 116 (55-170) U/L CK-MB (CK-2) (0.0-2.4) ng/mL Troponin I (0.000-0.034) ng/mL NT-Pro-B Natriuret Pep pg/mL Total Protein 7.5 (6.3-8.2) g/dL Albumin 4.3 (3.5-5.0) g/dL 02/18/20 02/18/20 Range/Units 21:10 21:10 WBC (3.8-10.6) k/uL RBC (4.30-5.90) m/uL Hgb (13.0-17.5) gm/dL Hct (39.0-53.0) % MCV (80.0-100.0) fL MCH (25.0-35.0) pg MCHC (31.0-37.0) g/dL RDW (11.5-15.5) % Plt Count (150-450) k/uL Neutrophils % % Lymphocytes % % Monocytes % % Eosinophils % % Basophils % % Neutrophils # (1.3-7.7) k/uL Lymphocytes # (1.0-4.8) k/uL Monocytes # (0-1.0) k/uL Eosinophils # (0-0.7) k/uL Basophils # (0-0.2) k/uL PT (9.0-12.0) sec INR (<1.2) APTT (22.0-30.0) sec Sodium (137-145) mmol/L Potassium (3.5-5.1) mmol/L Chloride (98-107) mmol/L Carbon Dioxide (22-30) mmol/L Anion Gap mmol/L BUN (9-20) mg/dL Creatinine (0.66-1.25) mg/dL Est GFR (CKD-EPI)AfAm (>60 ml/min/1.73 sqM) Est GFR (CKD-EPI)NonAf (>60 ml/min/1.73 sqM) Glucose (74-99) mg/dL Calcium (8.4-10.2) mg/dL Magnesium (1.6-2.3) mg/dL Total Bilirubin (0.2-1.3) mg/dL AST (17-59) U/L ALT (4-49) U/L Alkaline Phosphatase (38-126) U/L Creatine Kinase (55-170) U/L CK-MB (CK-2) 1.1 (0.0-2.4) ng/mL Troponin I <0.012 (0.000-0.034) ng/mL NT-Pro-B Natriuret Pep 16 pg/mL Total Protein (6.3-8.2) g/dL Albumin (3.5-5.0) g/dL - EKG Data -: EKG Interpreted by Me (EKG shows sinus tachycardia 103, VT 120, QRS 80, QTC 429) - Radiology Data Radiology results: report reviewed (Chest x-ray is negative for acute disease), image reviewed Disposition Clinical Impression: COPD exacerbation, Tobacco abuse, Asthma with acute exacerbation Disposition: HOME SELF-CARE Condition: Good Instructions (If sedation given, give patient instructions): Acute Bronchitis (ED), Chronic Bronchitis (ED) Prescriptions: predniSONE 50 mg PO DAILY #5 tab Albuterol Sulfate [Proair Hfa] 1 - 2 puff INHALATION Q4H PRN #1 inhaler PRN Reason: Shortness Of Breath Azithromycin [Zithromax Z-pack] 0 mg PO DIRECTED #1 pack Is patient prescribed a controlled substance at d/c from ED?: No Referrals: Oseas Jordan MD [Primary Care Provider] - 1-2 days
[2020-02-18 21:30] LABS: Basophils % (A) 0 %; Eosinophils # (A) 0.2 k/uL (0-0.7); Eosinophils % (A) 2 %; HCT 49.4 % (39.0-53.0); HGB 15.7 gm/dL (13.0-17.5); Lymphocytes # (A) 1.1 k/uL (1.0-4.8); Lymphocytes % (A) 10 %; MCH 29.7 pg (25.0-35.0); MCHC 31.8 g/dL (31.0-37.0); MCV 93.5 fL (80.0-100.0); Mean Platelet Volume 7.5; Monocytes # (A) 0.6 k/uL (0-1.0); Monocytes % (A) 5 %; Neutrophils # (A) 8.9 k/uL (1.3-7.7); Neutrophils % (A) 81 %; Platelet Count 311 k/uL (150-450); RBC 5.29 m/uL (4.30-5.90); RDW 13.6 % (11.5-15.5)
[2020-02-18 21:41] LABS: ALT 22 U/L (4-49); AST 29 U/L (17-59); African American GFR (CKD) >90 (>60 ml/min/1.73 sqM); Albumin 4.3 g/dL (3.5-5.0); Alkaline Phosphatase 75 U/L (38-126); Anion Gap 9 mmol/L; Blood Urea Nitrogen 15 mg/dL (9-20); Calcium 9.2 mg/dL (8.4-10.2); Carbon Dioxide 25 mmol/L (22-30); Chloride 101 mmol/L (98-107); Creatine Kinase 116 U/L (55-170); Glucose 101 mg/dL (74-99); Magnesium 2.1 mg/dL (1.6-2.3); Non-African American GFR(CKD) >90 (>60 ml/min/1.73 sqM); Potassium 4.5 mmol/L (3.5-5.1); Sodium 135 mmol/L (137-145); Total Bilirubin 0.4 mg/dL (0.2-1.3); Total Protein 7.5 g/dL (6.3-8.2)
[2020-02-18 21:43] LABS: INR 0.9 (<1.2); Partial Thromboplastin Time 24.9 sec (22.0-30.0); Prothrombin Time 9.4 sec (9.0-12.0)
[2020-02-18 22:07] LABS: Creatine Kinase MB 1.1 ng/mL (0.0-2.4); Troponin I <0.012 ng/mL (0.000-0.034)
--- NOTE | 2020-02-18 22:23 | XR ---
EXAMINATION TYPE: XR chest 1V portable DATE OF EXAM: 02/18/2020 COMPARISON: 11/22/2019 HISTORY: Short of breath TECHNIQUE: FINDINGS: Heart and mediastinum are normal. Lungs are clear. Diaphragm is normal. Bony thorax appears normal. There are chest leads. There are small calcified granuloma right lower lobe. IMPRESSION: No active cardiopulmonary disease. No change.
[2020-02-18] MEDS ORDERED: DEXAMETHASONE SOD PHOSPHATE 10 MG/ML 1 ML VIAL IM STA (22:53)
[2020-02-18] MEDS ORDERED: ALBUTEROL NEBULIZED (CONC) 2.5 MG, SODIUM CHLORIDE 0.9% NEBULIZ 3 ML INHALATION STA ×2 (23:34)
[2020-02-19 00:22] VITALS: BP 130/84; PULSE 98; RESP 19
== END 2020-02-19 00:23 | disposition home or self-care (01) ==
LOC: EC 20:58
DX: J44.1 Chronic obstructive pulmonary disease with (acute) exacerbation (principal); J45.901 Unspecified asthma with (acute) exacerbation; R00.0 Tachycardia, unspecified; F17.200 Nicotine dependence, unspecified, uncomplicated; Z59.0 Homelessness; Z82.49 Family history of ischemic heart disease and other diseases of the circulatory system
CPT/HCPCS: 36415; 94640; 94644; 93005; 83880; 80053; 82550; 82553; 83735; 84484; 85025; 85610; 85730; 71045; 99285; 96365; 96366; 96375; 96361; 96372; J1100; J2930; J0456

== ENCOUNTER 2022-09-11 23:14 | Observation (INO) | payer OTHER ==
[2022-09-12] MEDS ORDERED: TETANUS-DIPHTHERIA TOX (PF) 0.5 ML VIAL IM ONE (01:32)
[2022-09-12] MEDS ORDERED: MORPHINE SULFATE 4 MG/ML SYRINGE IV STA (01:32)
[2022-09-12] MEDS ORDERED: IBUPROFEN 600 MG TAB PO STA (01:32)
[2022-09-12] MEDS ORDERED: SODIUM CHLORIDE 0.9% 1,000 ML IV STA ×2 (01:35→05:02)
[2022-09-12] MEDS ORDERED: VANCOMYCIN IV PER PHARMACY 1 EACH MISC MISCELLANE PRN (01:35)
[2022-09-12] MEDS ORDERED: VANCOMYCIN 1,750 MG in SODIUM CHLORIDE 0.9% 500 ML 500 ML IVPB ONE (01:45)
[2022-09-12 02:42] VITALS: PULSE 102; RESP 18
[2022-09-12 02:56] LABS: Basophils # (A) 0.1 k/uL (0-0.2); Basophils % (A) 0 %; Eosinophils % (A) 0 %; HCT 44.3 % (39.0-53.0); HGB 14.9 gm/dL (13.0-17.5); Lymphocytes # (A) 1.7 k/uL (1.0-4.8); Lymphocytes % (A) 11 %; MCHC 33.5 g/dL (31.0-37.0); MCV 92.5 fL (80.0-100.0); Mean Platelet Volume 8.1; Monocytes # (A) 0.6 k/uL (0-1.0); Monocytes % (A) 4 %; Neutrophils # (A) 12.6 k/uL (1.3-7.7); Neutrophils % (A) 83 %; Platelet Count 249 k/uL (150-450); RBC 4.79 m/uL (4.30-5.90); RDW 12.5 % (11.5-15.5); WBC 15.3 k/uL (3.8-10.6)
[2022-09-12 02:57] LABS: ALT 200 U/L (4-49); AST 117 U/L (17-59); African American GFR (CKD) >90 (>60 ml/min/1.73 sqM); Albumin 4.5 g/dL (3.5-5.0); Alkaline Phosphatase 109 U/L (38-126); Anion Gap 13 mmol/L; Blood Urea Nitrogen 15 mg/dL (9-20); Carbon Dioxide 28 mmol/L (22-30); Chloride 92 mmol/L (98-107); Glucose 123 mg/dL (74-99); Non-African American GFR(CKD) >90 (>60 ml/min/1.73 sqM); Potassium 3.8 mmol/L (3.5-5.1); Sodium 133 mmol/L (137-145); Total Bilirubin 0.8 mg/dL (0.2-1.3); Total Protein 7.8 g/dL (6.3-8.2)
--- NOTE | 2022-09-12 04:15 | CT ---
EXAMINATION TYPE: CT lower extremity RT w con DATE OF EXAM: 09/12/2022 COMPARISON: HISTORY: Abscess on inside of rt upper leg CT DLP: 2128 mGycm Automated exposure control for dose reduction was used. CONTRAST: Performed with IV Contrast, patient injected with 100ml mL of Isovue 300. Images obtained from the iliac crest to the femoral condyles with the IV contrast. There is extensive subcutaneous edema in the medial right upper thigh. There is fat stranding that ex tends from the inguinal region to the mid thigh. No discrete drainable fluid collection. The muscle b undles of the right thigh appear intact. No evidence of bone destruction. The femur is intact. Hip nat int is intact. The right hemipelvis is intact. Sacroiliac joint appears normal. No fracture seen. The re are numerous large inguinal lymph nodes noted. IMPRESSION: Large area of subcutaneous edema in the medial upper thigh consistent with cellulitis. No discrete ab scess seen. Multiple enlarged right inguinal lymph nodes measuring up to 2.8 cm.
[2022-09-12] MEDS ORDERED: NALOXONE 0.4 MG/ML 1 ML VIAL IV PRN (04:42)
[2022-09-12] MEDS ORDERED: MORPHINE SULFATE 4 MG/ML SYRINGE IV PRN (04:47)
[2022-09-12] MEDS ORDERED: ALBUTEROL NEBULIZED 2.5 MG/3 ML INHALATION PRN (04:52)
--- NOTE | 2022-09-12 04:53 | ED ---
General Adult HPI - General Chief complaint: Skin/Abscess/Foreign Body Stated complaint: Abscess on inside of upper right leg Time Seen by Provider: 09/12/22 01:21 Source: patient, RN notes reviewed, old records reviewed Mode of arrival: ambulatory Limitations: no limitations - History of Present Illness Initial comments: Patient is a 47-year-old male with past medical history remarkable for IV drug abuse, COPD who presents emergency Department complaining of a suspected abscess or skin infection on the inside of his right thigh. States has been there for the last 2-3 days. Seems to be getting worse. It is painful. It is warm to touch. Has a purulent discharge from multiple sites. Consent for acute infection. Denies any nausea, vomiting, fevers but does endorse chills. Denies any chest pain, shortness of breath. Denies any sensory deficits the right lower extremity or numbness. Denies any weakness. Presents for further evaluation of this time. - Related Data Previous Rx's Medication Instructions Recorded predniSONE [Deltasone] 40 mg PO DAILY 5 Days #10 tablet 11/22/19 Ipratropium-Albuterol Nebulize 3 ml INHALATION RT-Q4H PRN #120 11/25/19 [Duoneb 0.5 mg-3 mg/3 ml Soln] ampul.neb Albuterol Sulfate [Proair Hfa] 1 - 2 puff INHALATION Q4H PRN #1 02/18/20 inhaler Azithromycin [Zithromax Z-pack (6 0 mg PO DIRECTED #1 pack 02/18/20 tabs)] predniSONE 50 mg PO DAILY #5 tab 02/18/20 Allergies Allergy/AdvReac Type Severity Reaction Status Date / Time No Known Allergies Allergy Verified 11/29/19 22:24 Review of Systems ROS Statement: Those systems with pertinent positive or pertinent negative responses have been documented in the HPI. Review of Systems: CONST: Denies fever EYES: Denies blurry vision ENT: Denies nasal congestion C/V: Denies Chest pain RESP: Denies shortness of breath GI: Denies abdominal pain : Denies dysuria SKIN: Endorses right inner thigh skin infection MSK: Denies joint pain. NEURO: Denies headache ROS Other: All systems not noted in ROS Statement are negative. Past Medical History Past Medical History: Asthma, COPD, GERD/Reflux, Osteoarthritis (OA) Additional Past Medical History / Comment(s): Bronchitis, gastric ulcer, lower GI bleed, concussion years ago, chronic low back pain, arthritis bilateral hands/shoulders History of Any Multi-Drug Resistant Organisms: None Reported Past Surgical History: No Surgical Hx Reported Past Anesthesia/Blood Transfusion Reactions: Unable to Obtain Additional Past Anesthesia/Blood Transfusion Reaction / Comment(s): Pt has never had anesthesia. Past Psychological History: Anxiety, Bipolar, Depression, Schizophrenia Past Alcohol Use History: Occasional Past Drug Use History: Marijuana - Past Family History Father Family Medical History: Myocardial Infarction ([place]) Additional Family Medical History / Comment(s): Father of a massive [place] at the age of 61 yrs. Mother Family Medical History: Diabetes Mellitus, Hypertension Additional Family Medical History / Comment(s): Mother is 76yrs old. General Exam - General Exam Comments Initial Comments: General: Appears in no acute distress. HEAD: Normal with no signs of head trauma. EYES: PERRLA, EOMI, conjunctiva normal, no discharge. ENT: Hearing grossly intact, normal oropharynx. RESPIRATORY: Clear breath sounds bilaterally. No wheezes, rales, or rhonchi. C/V: Tachycardic. S1 and S2 auscultated, no edema, peripheral pulses 2+ and intact throughout ABD: Abd is soft, nontender, nondistended EXT: Normal range of motion, no obvious deformity SKIN: A large erythematous patch located over the medial aspect of the right proximal thigh into the groin. There is induration. No obvious fluctuance. There are pustules with a small amount of purulent discharge. No crepitus palpated. NEURO: Alert and oriented 4. No focal deficits. Limitations: no limitations Course Vital Signs 09/11/22 09/12/22 09/12/22 23:24 02:41 06:43 Temperature 99.3 F 99.4 F Pulse Rate 113 H 102 H 102 H Respiratory 20 18 18 Rate Blood Pressure 146/87 129/82 118/74 O2 Sat by Pulse 99 93 L 94 L Oximetry Medical Decision Making - Medical Decision Making Based on the patient's presentation and physical exam, I'm concerned for a soft tissue infection over the proximal aspect of his right medial thigh. I would li ke to obtain CT imaging of the site as well as obtain infectious labs, blood cultures, wound cultures. He was in agreement this plan. Patient was administered IV fluids, was also started on IV vancomycin. He was given pain medications. He'll likely require admission to the hospital. Laboratory studies are remarkable for a leukocytosis of 15.3. Lactic acid is within normal limits. LFTs are mildly elevated. Cultures are pending. CT imaging revealed a large area of subcutaneous edema in the medial upper thigh consistent with cellulitis with no discrete abscess seen. There are multiple e nlarged right inguinal lymph nodes measuring up to 2.8 cm. On reevaluation, after the patient on the findings. He is more comfortable at this time. I still would like to admit him to the hospital for multiple doses of IV and about expert he was in agreement this plan. I spoke the patient's admitting physician, Dr. Jordan who accepted the patient. He was admitted in stable condition. - Lab Data Result diagrams: 09/12/22 02:22 09/12/22 02:22 Lab Results 09/12/22 09/12/22 09/12/22 Range/Units 02:22 02:22 02:22 WBC 15.3 H (3.8-10.6) k/uL RBC 4.79 (4.30-5.90) m/uL Hgb 14.9 (13.0-17.5) gm/dL Hct 44.3 (39.0-53.0) % MCV 92.5 (80.0-100.0) fL MCH 31.0 (25.0-35.0) pg MCHC 33.5 (31.0-37.0) g/dL RDW 12.5 (11.5-15.5) % Plt Count 249 (150-450) k/uL MPV 8.1 Neutrophils % 83 % Lymphocytes % 11 % Monocytes % 4 % Eosinophils % 0 % Basophils % 0 % Neutrophils # 12.6 H (1.3-7.7) k/uL Lymphocytes # 1.7 (1.0-4.8) k/uL Monocytes # 0.6 (0-1.0) k/uL Eosinophils # 0.0 (0-0.7) k/uL Basophils # 0.1 (0-0.2) k/uL Sodium 133 L (137-145) mmol/L Potassium 3.8 (3.5-5.1) mmol/L Chloride 92 L (98-107) mmol/L Carbon Dioxide 28 (22-30) mmol/L Anion Gap 13 mmol/L BUN 15 (9-20) mg/dL Creatinine 0.84 (0.66-1.25) mg/dL Est GFR (CKD-EPI)AfAm >90 (>60 ml/min/1.73 sqM) Est GFR (CKD-EPI)NonAf >90 (>60 ml/min/1.73 sqM) Glucose 123 H (74-99) mg/dL Plasma Lactic Acid [place] 0.6 L (0.7-2.0) mmol/L Calcium 9.0 (8.4-10.2) mg/dL Total Bilirubin 0.8 (0.2-1.3) mg/dL AST 117 H (17-59) U/L ALT 200 H (4-49) U/L Alkaline Phosphatase 109 (38-126) U/L Total Protein 7.8 (6.3-8.2) g/dL Albumin 4.5 (3.5-5.0) g/dL Disposition Clinical Impression: Cellulitis, History of intravenous drug abuse Disposition: ADMITTED IP TO THIS [facility] Condition: Stable Time of Disposition: 04:25
[2022-09-12] MEDS ORDERED: ACETAMINOPHEN TAB 325 MG TAB PO PRN (05:02)
[2022-09-12 06:44] VITALS: BP 118/74; TEMP 99.4
[2022-09-12] MEDS ORDERED: HEPARIN SODIUM,PORCINE/PF 5,000 UNIT/0.5 ML SYRINGE SQ SCH (08:00)
[2022-09-12] MEDS ORDERED: VANCOMYCIN 1,750 MG in SODIUM CHLORIDE 0.9% 500 ML 500 ML IVPB SCH (10:00)
--- NOTE | 2022-09-13 12:17 | HP ---
HISTORY AND PHYSICAL CHIEF COMPLAINT: Pain, redness and swelling in the right leg. HISTORY OF PRESENT ILLNESS: This is the first known admission for this 47-year-old white male who apparently is homeless. He came to the emergency room because he had pain in the right pubic area extending down into the anteromedial thigh and down toward the knee. This started with an infected hair follicle in the right pubic area. His assessment in the emergency room by the physician suggested that he should be admitted for IV antibiotics. This is quite painful, fiery red and tender. It was thought that it might be MRSA. REVIEW OF SYSTEMS: He has had chills. He has had no headache, chest pain, shortness of breath, abdominal pain, nausea, vomiting, diarrhea, melena, incontinence, renal disease, diabetes, etc. He denies using shooting drugs. Past medical history, family history and personal and social histories are all otherwise unremarkable or noncontributory. He is not allergic to any medication and does not take any. He has had no surgery. He does not drink alcohol and occasionally uses marijuana and he smokes a pack of cigarettes a day. PHYSICAL EXAMINATION: VITAL SIGNS: Blood pressure is 144/92 with a pulse of 86, respirations of 30 and temperature 99. GENERAL: Appeared to be well developed, well nourished, in no acute distress. DERMATOLOGIC: Skin color is normal. Skin is warm and dry. LYMPHATICS: Lymph nodes are not enlarged. HEENT: Head, ears, eyes, nose, mouth and throat were normal. NECK: Neck veins are not distended. Thyroid not enlarged. CHEST: Clear. CARDIAC EXAM: Normal. ABDOMEN: Soft, nontender. EXTREMITIES: He has a cellulitis in the right pubic area extending down into the anteromedial thigh all the way to the knee and slightly below. Calf is soft and nontender. Pulses good. NEUROLOGICAL: He is intact. DIAGNOSIS: Cellulitis of the right pubic area, groin and right anterior thigh. PLAN: 1. Bedrest. 2. IV fluids. 3. IV antibiotics. NADIA / JOSE: [id number] /
--- NOTE | 2022-09-13 21:29 | DS ---
DISCHARGE SUMMARY CHIEF COMPLAINT: Cellulitis of the right pubic area, groin, and thigh. HISTORY OF PRESENT ILLNESS AND PHYSICAL EXAMINATION: Details of this man's history and physical can be found in the initial workup. LABORATORY STUDIES: While he was in the hospital, he had laboratory studies, details of which can be found in the laboratory section of his chart. COURSE IN THE HOSPITAL: After admission, he was placed on bedrest and started on intravenous fluids and was to be started on IV antibiotics when he signed out AMA. FINAL DIAGNOSES: Cellulitis of the right pubic area, groin, and right thigh. OPERATIONS: None. CONSULTATIONS: None. He signed out AMA. NADIA / JOSE: [id number] /
== END 2022-09-12 09:30 | disposition left against medical advice (07) ==
LOC: EC 23:14 → 6NMEDSUR 09-12 04:42
PROVIDERS: ADMIT Family Medicine; ATTEND Family Medicine
DX: L03.314 Cellulitis of groin (principal); L03.115 Cellulitis of right lower limb; J44.9 Chronic obstructive pulmonary disease, unspecified; K21.9 Gastro-esophageal reflux disease without esophagitis; M19.90 Unspecified osteoarthritis, unspecified site; G89.29 Other chronic pain; M54.50 Low back pain, unspecified; F41.9 Anxiety disorder, unspecified; F31.9 Bipolar disorder, unspecified; F20.9 Schizophrenia, unspecified; F17.210 Nicotine dependence, cigarettes, uncomplicated; Z53.29 Procedure and treatment not carried out because of patient's decision for other reasons; Z59.00 Homelessness unspecified; Z79.52 Long term (current) use of systemic steroids; Z23 Encounter for immunization
CPT/HCPCS: 90471; 96365; 96366; 96372; 96375; 99284; 36415; 80053; 83605; 85025; 87040; 87070; 87205; 87075; 73701; 90714; G0378; J3370; J2270; Q9967; J1644; 87077; 87186

== ENCOUNTER 2024-12-03 14:43 | Emergency (ER) | payer OTHER ==
[2024-12-03 15:01] VITALS: RESP 18; TEMP 98.3
--- NOTE | 2024-12-03 16:34 | ED ---
Psych HPI - General Source: patient, RN notes reviewed Mode of arrival: ambulatory - History of Present Illness MD Complaint: feels depressed Onset/Timin -: days(s) <Deshawn Muñoz - Last Filed: 12/03/24 16:32> <Carolyn Peraza - Last Filed: 12/03/24 23:34> - General Chief Complaint: Psychiatric Symptoms Stated Complaint: Mental health eval Time Seen by Provider: 12/03/24 14:58 - History of Present Illness Initial Comments: Quick note: This is a 49-year-old male presenting with suicidal ideation x 7 days. Patient states he feels "the world would be better off without him" but denies any definitive plan. Denies homicidal ideation. States he currently does not take psych medication. States he spent a brief time at [place] around 2019 where he received medication but has not been taking any medication since that time. (Deshawn Muñoz) 49-year-old male presenting with chief complaint of depression. States that he has been going through a lot of stress recently. He has no plan to harm himself, however he states that at times he just feels overwhelmed. No homicidal ideation. States that he previously took psychiatric medication but has not been on it for quite some time. He is currently homeless. He is having no physical complaints today. (Carolyn Peraza) - Related Data Home Medications Medication Instructions Recorded Confirmed No Known Home Medications 09/12/22 09/12/22 Allergies Allergy/AdvReac Type Severity Reaction Status Date / Time No Known Allergies Allergy Verified 12/03/24 14:56 Review of Systems ROS Other: All systems not noted in ROS Statement are negative. <Deshawn Muñoz - Last Filed: 12/03/24 16:32> ROS Other: All systems not noted in ROS Statement are negative. <Carolyn Peraza - Last Filed: 12/03/24 23:34> ROS Statement: Those systems with pertinent positive or pertinent negative responses have been documented in the HPI. Past Medical History Past Medical History: Asthma, COPD, GERD/Reflux, Osteoarthritis (OA) Additional Past Medical History / Comment(s): Bronchitis, gastric ulcer, lower GI bleed, concussion years ago, chronic low back pain, arthritis bilateral hands /shoulders History of Any Multi-Drug Resistant Organisms: MRSA Date of last positivie culture/infection: 09/12/22 MDRO Source:: Right Leg Past Surgical History: No Surgical Hx Reported Past Anesthesia/Blood Transfusion Reactions: Unable to Obtain Additional Past Anesthesia/Blood Transfusion Reaction / Comment(s): Pt has never had anesthesia. Past Psychological History: Anxiety, Bipolar, Depression, Schizophrenia Smoking Status: Current every day smoker Past Alcohol Use History: None Reported Past Drug Use History: Marijuana - Past Family History Father Family Medical History: Myocardial Infarction ([place]) Additional Family Medical History / Comment(s): Father of a massive [place] at the age of 61 yrs. Mother Family Medical History: Diabetes Mellitus, Hypertension Additional Family Medical History / Comment(s): Mother is 76yrs old. <Deshawn Muñoz - Last Filed: 12/03/24 16:32> General Exam Limitations: no limitations <Deshawn Muñoz - Last Filed: 12/03/24 16:32> Limitations: no limitations General appearance: alert, in no apparent distress Head exam: Present: atraumatic, normocephalic, normal inspection Eye exam: Present: normal appearance, EOMI Neck exam: Present: normal inspection. Absent: meningismus Respiratory exam: Absent: respiratory distress Cardiovascular Exam: Present: regular rate Neurological exam: Present: alert, oriented X3 Psychiatric exam: Present: normal affect, normal mood Skin exam: Present: warm, dry <Carolyn Peraza - Last Filed: 12/03/24 23:34> - General Exam Comments Initial Comments: Visual Physical Exam Vital signs reviewed General: Well-appearing, nontoxic, no acute distress. Head: Normocephalic, atraumatic Eyes: PERRLA, EOMI ENT: Airway patent Chest: Nonlabored breathing Skin: No visual rash, normal skin tone Neuro: Alert and oriented 3 Musculoskeletal: No gross abnormalities (Deshawn Muñoz) Course Vital Signs 12/03/24 12/03/24 14:57 20:50 Temperature 98.3 F 98.3 F Pulse Rate 83 78 Respiratory 18 18 Rate Blood Pressure 153/90 146/74 O2 Sat by Pulse 98 100 Oximetry Medical Decision Making <Deshawn Muñoz - Last Filed: 12/03/24 16:32> <Carolyn Peraza - Last Filed: 12/03/24 23:34> - Medical Decision Making I completed the quick note portion of this chart signed RENUKA Duarte (Deshawn Muñoz) Was pt. sent in by a medical professional or institution ([facility], [employer], urgent care, hospital, or halfway...) When possible be specific @ -No Did you speak to anyone other than the patient for history (EMS, parent, family, police, friend...)? What history was obtained from this source @ -No Did you review nursing and triage notes (agree or disagree)? Why? @ -I reviewed and agree with nursing and triage notes Were old charts reviewed (outside hosp., previous admission, EMS record, old EKG, old radiological studies, urgent care reports/EKG's, halfway records)? Report findings @ -No old charts were reviewed Differential Diagnosis (chest pain, altered mental status, abdominal pain women, abdominal pain men, vaginal bleeding, weakness, fever, dyspnea, syncope, headache, dizziness, GI bleed, back pain, seizure, CVA, palpatations, mental health, musculoskeletal)? @ -Differential Mental Health Depression, anxiety, bipolar, psychosis, schizophrenia, borderline personality, situational depression, adjustment disorder, behavioral disorder, brain tumor, malingering, substance abuse, encephalopathy, medication reaction, dementia, hypothyroidism, degenerative neurologic disorder, lupus.... This is not meant to be all-inclusive list EKG interpreted by me (3pts min.). @ -As above X-rays interpreted by me (1pt min.). @ -None done CT interpreted by me (1pt min.). @ -None done U/S interpreted by me (1pt. min.). @ -None done What testing was considered but not performed or refused? (CT, X-rays, U/S, labs)? Why? @ -None What meds were considered but not given or refused? Why? @ -None Did you discuss the management of the patient with other professionals (professionals i.e. [facility], [employer], lab, RT, psych nurse, social media strategist, [place], teacher, senior commercial loan officer, insurance case manager)? Give summary @ -No Was smoking cessation discussed for >3mins.? @ -No Was critical care preformed (if so, how long)? @ -No Were there social determinants of health that impacted care today? How? (Homelessness, low income, unemployed, alcoholism, drug addiction, transportation, low edu. Level, literacy, decrease access to med. care, half-way, rehab)? @ -No Was there de-escalation of care discussed even if they declined (Discuss DNR or withdrawal of care, Hospice)? DNR status @ -No What co-morbidities impacted this encounter? (DM, HTN, Smoking, COPD, CAD, Cancer, CVA, ARF, Chemo, Hep., AIDS, mental health diagnosis, sleep apnea, morbid obesity)? @ -None Was patient admitted / discharged? Hospital course, mention meds given and route , prescriptions, significant lab abnormalities, going to OR and other pertinent info. @ -49-year-old male with chief complaint of increased depression. No suicidal or homicidal ideation. Patient is medically cleared. He is evaluated by EPS and deemed appropriate for discharge home. EPS forms a safety plan with the patient. Follow-up with PCP. Report back to ER with any new or worsening symp toms. Discussed return parameters and answered all questions. Patient conveyed verbal understanding and agreed to the plan. My attending is Dr. Culver Undiagnosed new problem with uncertain prognosis? @ -No Drug Therapy requiring intensive monitoring for toxicity (Heparin, Nitro, Insulin, Cardizem)? @ -No Were any procedures done? @ -No Diagnosis/symptom? @ -Depression Acute, or Chronic, or Acute on Chronic? @ -Acute on chronic Uncomplicated (without systemic symptoms) or Complicated (systemic symptoms)? @ -Uncomplicated Side effects of treatment? @ -No Exacerbation, Progression, or Severe Exacerbation? @ -No (Carolyn Peraza) - Lab Data Lab Results 12/03/24 Range/Units 17:37 Urine Opiates Screen Not Detected (NotDetected) Ur Oxycodone Screen Not Detected (NotDetected) Urine Methadone Screen Not Detected (NotDetected) Ur Barbiturates Screen Not Detected (NotDetected) U Tricyclic Antidepress Not Detected (NotDetected) Ur Phencyclidine Scrn Not Detected (NotDetected) Ur Amphetamines Screen Detected H (NotDetected) U Methamphetamines Scrn Detected H (NotDetected) U Benzodiazepines Scrn Not Detected (NotDetected) Urine Cocaine Screen Detected H (NotDetected) U Marijuana (THC) Screen Detected H (NotDetected) Disposition <Deshawn Muñoz - Last Filed: 12/03/24 16:32> Is patient prescribed a controlled substance at d/c from ED?: No Time of Disposition: 20:31 <Carolyn Peraza - Last Filed: 12/03/24 23:34> Clinical Impression: Depression, Homeless Disposition: HOME SELF-CARE Condition: Fair Instructions (If sedation given, give patient instructions): Depression (ED) Additional Instructions: Follow-up with [facility]. Report back to ER with any new or worsening symptoms. Follow your safety plan. Referrals: Oseas Jordan MD [Primary Care Provider] - 1-2 days [facility][1] [NON-STAFF] - 1-2 days
[2024-12-03 18:15] LABS: Cocaine Screen,Urine Detected (NotDetected); Phencyclidine Screen,Urine Not Detected (NotDetected); Urn Cannabinoid Scrn Detected (NotDetected)
[2024-12-03 18:16] LABS: Amphetamine Screen,Urine Detected (NotDetected); Barbiturate Screen,Urine Not Detected (NotDetected); Benzodiazepines Screen,Urine Not Detected (NotDetected); Methadone Screen, Urine Not Detected (NotDetected); Opiate Screen,Urine Not Detected (NotDetected); Oxycodone Screen, Urine Not Detected (NotDetected); Tricyclic Antidepressant,Urine Not Detected (NotDetected)
[2024-12-03 20:51] VITALS: BP 146/74; PULSE 78
== END 2024-12-03 20:51 | disposition home or self-care (01) ==
LOC: EC 14:43
DX: F32.A Depression, unspecified (principal); F17.200 Nicotine dependence, unspecified, uncomplicated
CPT/HCPCS: 80306; 82075; 99284